=== PATIENT | female | born 1950 | race Caucasian/White ===

== ENCOUNTER 2019-02-02 12:11 | Day surgery (SDC) | payer MEDICAID ==
[~2019-02-02] VITALS: Ht 162.6 cm; Wt 113.2 kg
[~2019-02-02 12:11] MED LIST: ALBU90AE PO; AMLO5TAB9 PO; BENZ-51 PO; CITA-106 PO; IBUP-2071 PO; LOSA50TA64 PO; METO25 PO; SODIUM CHLORIDE 0.9% 1,000 ML IV ONE; TRAZ-252 PO; TRIA15CR49 TP; VALS160T2 PO
[2019-02-02] MEDS ORDERED: PROPOFOL 1% 20 ML VIAL IVP ONE (12:12)
[2019-02-02] MEDS ORDERED: SODIUM CHLORIDE 0.9% 1,000 ML IV ONE (12:30)
== END 2019-02-02 16:20 | disposition home or self-care (01) ==
LOC: SURGERY 12:11
PROVIDERS: ATTEND Student in an Organized Health Care Education/Training Program
DX: K21.0 Gastro-esophageal reflux disease with esophagitis (principal); K44.9 Diaphragmatic hernia without obstruction or gangrene; K29.30 Chronic superficial gastritis without bleeding; K22.2 Esophageal obstruction; K31.7 Polyp of stomach and duodenum; I10 Essential (primary) hypertension; J45.909 Unspecified asthma, uncomplicated; M19.90 Unspecified osteoarthritis, unspecified site; E66.9 Obesity, unspecified; Z79.899 Other long term (current) drug therapy; Z88.7 Allergy status to serum and vaccine; Z91.040 Latex allergy status; Z90.49 Acquired absence of other specified parts of digestive tract; Z98.890 Other specified postprocedural states
CPT/HCPCS: 43239; 88305; 88312; 88313; 93005; C1769; J2704; J7030

== ENCOUNTER 2019-02-08 11:07 | Day surgery (SDC) | payer MEDICAID ==
[~2019-02-08] VITALS: Ht 162.6 cm; Wt 110.9 kg
[~2019-02-08 11:07] MED LIST changes: +SODIUM CHLORIDE 0.9% 1,000 ML ONE
[2019-02-08] MEDS ORDERED: LIDOCAINE/PF 2% 5 ML SYRINGE IVP ONE (11:08)
[2019-02-08] MEDS ORDERED: PROPOFOL 1% 20 ML VIAL IVP ONE (11:08)
== END 2019-02-08 14:15 | disposition home or self-care (01) ==
LOC: SURGERY 11:07 → EDUNIT# 13:30 → SURGERY 14:15
PROVIDERS: ATTEND Student in an Organized Health Care Education/Training Program
DX: R19.4 Change in bowel habit (principal); D12.2 Benign neoplasm of ascending colon; K63.5 Polyp of colon; K64.8 Other hemorrhoids; K57.30 Diverticulosis of large intestine without perforation or abscess without bleeding
CPT/HCPCS: 45385; 45380; 88305; C1769; J2704; J3490; J7030

== ENCOUNTER 2019-04-05 10:12 | Day surgery (SDC) | payer MEDICAID ==
[~2019-04-05] VITALS: Ht 162.6 cm; Wt 110.9 kg
[~2019-04-05 10:12] MED LIST changes: -SODIUM CHLORIDE 0.9% 1,000 ML IV ONE; -VALS160T2 PO
[2019-04-05] MEDS ORDERED: LIDOCAINE/PF 2% 5 ML SYRINGE IVP ONE (10:13)
[2019-04-05] MEDS ORDERED: PROPOFOL 1% 20 ML VIAL IVP ONE (10:13)
[2019-04-05] MEDS ORDERED: SODIUM CHLORIDE 0.9% 1,000 ML IV ONE (10:30)
== END 2019-04-05 14:15 | disposition home or self-care (01) ==
LOC: SURGERY 10:12
PROVIDERS: ATTEND Student in an Organized Health Care Education/Training Program
DX: K21.0 Gastro-esophageal reflux disease with esophagitis (principal); K44.9 Diaphragmatic hernia without obstruction or gangrene; K31.7 Polyp of stomach and duodenum; I10 Essential (primary) hypertension; E11.9 Type 2 diabetes mellitus without complications; F32.9 Major depressive disorder, single episode, unspecified; G89.29 Other chronic pain; E66.01 Morbid (severe) obesity due to excess calories; Z68.41 Body mass index [BMI] 40.0-44.9, adult; Z79.899 Other long term (current) drug therapy
CPT/HCPCS: 43239; 88305; 88312; 88313; C1769; J2704; J3490; J7030